=== PATIENT | male | born 1975 | race Caucasian/White ===

== ENCOUNTER 2022-10-13 10:03 | Emergency (ER) | payer BC, SELFPAY ==
[2022-10-13 10:19] VITALS: BP 149/99; PULSE 93; RESP 18; TEMP 36.7; O2SAT 99
--- NOTE | 2022-10-13 10:22 | ED.WOUNDLAC ---
HPI - Wound/Laceration General Chief Complaint: Extremity Injury, Lower Stated Complaint: rt leg swollen Time Seen by Provider: 10/13/22 10:22 Source: patient Mode of arrival: ambulatory Limitations: no limitations History of Present Illness HPI narrative: 47 year old male presented for complaints red swollen painful right lower leg since yesterday. Endorses dog scratched his leg, but unsure when. States the dog did not bite him. He has been applying MATHEW to the site. He endorses pain with ambulating. Rates pain 05/02. He took Tylenol this morning for pain. Denies Drainage, numbness, tingling, or weakness. Related Data Home Medications Medication Instructions Recorded Confirmed escitalopram oxalate 10 mg tablet 10 mg PO DAILY 06/19/22 10/13/22 Allergies Allergy/AdvReac Type Severity Reaction Status Date / Time No Known Allergies Allergy Verified 10/13/22 10:23 Review of Systems Review of Systems: CONSTITUTIONAL: Denies body aches, fever, chills, or sweats. CARDIOVASCULAR: Denies chest pain, palpitations, or edema. RESPIRATORY: Denies cough or dyspnea. GASTROINTESTINAL: Denies abdominal pain, nausea, vomiting, or diarrhea. SKIN: Per HPI MUSCULOSKELETAL: Denies back pain, joint pain, or myalgia. NEUROLOGIC: Denies headache, numbness, tingling, or weakness. [facility] Past Medical History Medical History Abdominal pain Allergies Anxiety Broken arm RIGHT ARM METAL PLATE Broken thumb LEFT THUMB SCREWS Establishing care with new doctor, encounter for Gastroparesis Right rotator cuff tear Right shoulder pain Social History Social History Smoking status: Former smoker Alcohol intake: never Substance use: never Lack of Transportation: No Lack of Food: Never True Current Housing: I Have Housing Concerned About Future Housing: No Difficulty Paying Gas/Electric Bills: No Difficulty Paying for Meds: No Currently Unemployed: No Education: Trade/Vocational Certificate Difficulty w/ Childcare or Family Care: No 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 Please see nursing chart for further information. There is no relevant family history pertinent to the presenting complaint Exam Narrative: GENERAL: Well-appearing HEAD: Normocephalic, atraumatic. EYES: conjunctivae clear, and EOMI. ENT: Mucous membranes moist. Oropharynx without edema, erythema or lesions. NECK: Supple. No lymphadenopathy CHEST: Clear to auscultation. HEART: Regular rate and rhythm. SKIN: Warm, dry. Right lower medial leg with mild swelling and erythema, no induration, drainage, or fluctuance, tender to palpation over medial malleolus, PPP. CMS intact. Full ROM to ankle. Ambulates with steady gait. NEURO: Alert and oriented x3. Course Course Emergency Course: Patient is aware of diagnosis, understands and agrees to treatment plan. Anticipatory guidance given. Patient agrees to follow-up as directed and is aware of reasons to seek care at the emergency department. Portions of this record may have been created with voice recognition software Level of Care: Express Care Visit Vital Signs Vital signs: Vital Signs Temperature 98.0 F 10/13/22 10:19 Pulse Rate 93 10/13/22 10:19 Respiratory Rate 18 10/13/22 10:19 Blood Pressure 149/99 H 10/13/22 10:19 Pulse Oximetry 99 10/13/22 10:19 Oxygen Delivery Room Air 10/13/22 10:19 Temperature 98.0 F 10/13/22 10:19 Pulse Rate 93 10/13/22 10:19 Respiratory Rate 18 10/13/22 10:19 Blood Pressure 149/99 H 10/13/22 10:19 Pulse Oximetry 99 10/13/22 10:19 Oxygen Delivery Room Air 10/13/22 10:19 Reviewed [facility]
== END 2022-10-13 10:36 | disposition home or self-care (01) ==
PROVIDERS: Emergency Provider Nurse Practitioner Family; PCP Family Medicine
DX: S80.811A Abrasion, right lower leg, initial encounter (principal); L03.115 Cellulitis of right lower limb; W54.8XXA Other contact with dog, initial encounter; F41.9 Anxiety disorder, unspecified; K31.84 Gastroparesis
CPT/HCPCS: 99213; G0463

== ENCOUNTER → 2022-11-10 07:53 | Outpatient (CLI) | payer BC, SELFPAY ==
--- NOTE | ~2022-11-10 | MR_ITS ---
MRI of the right shoulder Technique: Axial proton-density fat-sat images, coronal proton density fat-sat and T2 fat-sat images, and sagittal T1-weighted and T2 fat-sat images were acquired. Clinical History: Rotator cuff tear Correlation made with plain radiographs dated 09/18/2022. 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 No significant degenerative change at the AC joint itself. No subacromial spur. Coracoclavicular, coracoacromial, and coracohumeral ligaments are intact. There is a 5 x 6 mm partial-thickness articular surface tear at the posterior aspect of the distal cuba praspinatus tendon at its insertion on the greater tuberosity. There is mild background tendinosis of the subscapularis tendon. No partial or full-thickness tear of the infraspinatus tendon. Subscapular is tendon is intact. Tendon of the long head of the biceps is intact. Probable tear at the superior labrum extending to anterosuperior portion, with a small 4 mm paralabra l cyst (series 3 image 10, series 4 image 15). Inferior glenohumeral ligament is intact. No effusion or degenerative change of the glenohumeral join t. No fluid distention of the subacromial/subdeltoid bursa. No muscle atrophy or edema identified. Impression: 5 x 6 mm partial-thickness articular surface tear at the posterior aspect of the distal supraspinatus tendon, as detailed above. Probable superior labral tear extending to the anterosuperior portion, with associated 4 mm paralabra l cyst. 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 Reviewed, dictated and finalized at location [] UP GUIDER OPERATOR Impression: 5 x 6 mm partial-thickness articular surface tear at the posterior aspect of th e distal supraspinatus tendon, as detailed above. Probable superior labral tear extending to the anterosuperior portion, with ass ociated 4 mm paralabral cyst. 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
== END ==
PROVIDERS: PCP Orthopaedic Surgery; Visit Provider Orthopaedic Surgery
DX: M75.101 Unspecified rotator cuff tear or rupture of right shoulder, not specified as traumatic (principal)
CPT/HCPCS: 73221

== ENCOUNTER 2023-02-16 00:51 | Day surgery (SDC) | payer BC, SELFPAY ==
[2023-02-04 14:44] VITALS: BMI 23.8
--- NOTE | 2023-02-04 14:45 | SUR.PREOP ---
Report to the Outpatient Waiting Room, entrance under the green pavilion located off [facility], at time _1000 on date _02/16/23 . Planned Procedure Time: _1200 . Time changes happen often and if your time is changed the preop area will call you the afternoon before. - You and your visitor will be asked to self-screen and do not enter if you have any COVID symptoms. - Only one visitor is requested with a max of two and NO children visitors are allowed at this time. - The patient visitor may be requested to leave or wait in car when not with patient due to distancing restrictions. - A mask is optional within the hospital at this time. Patients may have clear liquids (water, carbonated beverages, clear teas, apple juice) until 3 hours prior to surgery with a maximum of 20 ounces. - No food from midnight until time of surgery - Infants may have breast milk until 4 hours before surgery, infant formula 6 hours prior to surgery. - Children will be allowed to drink immediately following surgery. If applicable, please bring a bottle or sippy cup to assist with drinking. Juice, water, soda, and popsicles are readily available. For infants on formula, please bring formula the day of surgery. Pacifiers are allowed. Take the following medications with a SIP of water the morning of surgery: __escitalopram DO NOT STOP ANY OF YOUR OTHER PRESCRIPTION MEDICATIONS PRIOR TO SURGERY ?EXCEPT THE FOLLOWING Medications to discontinue per physician ____n/a Date to take last dose___n/a Please no make-up, nail malaysian, hairspray, perfume, deodorant, or body powder the day of surgery. No jewelry (including any body piercings) or valuables the day of surgery, leave them at home. Please take a shower or bath the night before, or the morning of, surgery with an antibacterial soap. Wear comfortable, loose fitting clothing. Children are encouraged to wear pajamas. - Jewelry must be removed prior to entering the operating room. Rings and piercings that are not removed may be cut off. - The hospital will not accept responsibility for valuables. - Please leave all valuables, including medications, at home the day of surgery. If you are going home after surgery, a licensed fuel truck driver must drive you home. - NO public transportation without another adult if you receive anesthesia. - We recommend that an adult stay with you for 24 hours following discharge. - We also recommend that you do not drive, make important decision, drink alcoholic beverages, or take any drugs that were not prescribed by your health care provider for at least 24 hours after your discharge time. For Pediatric surgeries, we recommend two adults accompany the child home. Follow any additional instructions given to you from your surgeon. If you or anyone in your household have experienced Covid symptoms in the past week, please notify your surgeon or the nurse liaison at the phone number below for possible testing. Telephone instructions given to _fred burgos and asked if any additional questions and then verbalized understanding. Patient advised to call surgeon office or pre surgery nurse liaison [phone] if any additional questions.
[2023-02-16] VITALS (8 sets, daily range): BP systolic 126–150; BP diastolic 71–103; PULSE 64–79; RESP 16–20; TEMP 37.1; O2SAT 95–98
--- NOTE | 2023-02-16 09:05 | WPDANESEPPF ---
Anes - Initial Pre Proc Eval Procedure: Operation Date: 02/16/23 12:00 Proposed Procedures p Right Shoulder Arthroscopic Rotator Cuff Repair, Subacromial Decompression, Proceed as Indicated - Amandeep Schwartz MD Date/Time: 02/16/23 09:05 Surgeon: Amandeep Schwartz MD Pre Op Diagnosis: Rt Shoulder Rot Cuff Tear Patient Data Age: 47 Gender: M Height: 1.83 m Weight: 79.54 kg Allergies Allergy/AdvReac Type Severity Reaction Status Date / Time No Known Allergies Allergy Verified 02/16/23 10:22 Home Medications Medication Instructions Recorded Confirmed Type escitalopram oxalate 10 mg tablet 10 mg PO DAILY 06/19/22 02/16/23 History loratadine 10 mg tablet (Claritin) 10 mg PO DAILY #30 tabs 06/19/22 02/16/23 Rx meclizine 25 mg chewable tablet 25 mg PO BID PRN dizziness #30 tabs 10/09/22 02/16/23 Rx (Antivert) fluticasone propionate 50 1 spray intranasal DAILY 01/21/23 02/16/23 History mcg/actuation nasal spray,suspension (Flonase Allergy Relief) polyethylene glycol 3350 17 17 g PO DAILY 01/21/23 02/16/23 History gram/dose oral powder (Miralax) Patient hx anesthesia problems: none Family hx anesthesia problems: none Results Review: All pre-operative results and documents have been reviewed as part of the pre-operative evaluation. [facility] Past Medical History Medical History (Updated 02/16/23 @ 09:06 by Ricardo Ramey DO) Abdominal pain Allergies Anxiety Broken arm RIGHT ARM METAL PLATE Broken thumb LEFT THUMB SCREWS Dry mouth Establishing care with new doctor, encounter for Gastroparesis GERD (gastroesophageal reflux disease) Right rotator cuff tear Right shoulder pain Saliva decreased Family History Family History Father Cerebrovascular accident Other Cerebrovascular accident Social History Social History Smoking status: Former smoker Smokeless tobacco user: chewing tobacco Additional smoking assessment comments: 11/23/2018 stopped chewing tobacco Alcohol intake: current Alcohol use details: 1 drink a month Substance use: never Lack of Transportation: No Lack of Food: Never True Current Housing: I Have Housing Concerned About Future Housing: No Difficulty Paying Gas/Electric Bills: No Difficulty Paying for Meds: No Currently Unemployed: No Education: Trade/Vocational Certificate Difficulty w/ Childcare or Family Care: No Living arrangements: with family Occupation/Education: occupation 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 Informed Consent: The patient's anesthetic plan and its attendant risks and benefits were discussed with the patient/family/POA. Questions were solicited and answers provided to the satisfaction of the patient/family/POA.
--- NOTE | 2023-02-16 09:06 | WPDANESPNB ---
Anes - Peripheral Nerve Block Date/Time: 02/16/23 09:06 I have discussed with the patient/family/POA the placement of a peripheral nerve block for post-operative pain management, including associated risks, benefits, complications, and side effects. Alternative methods of post-operative analgesia were detailed. Questions were solicited and answers provided to the satisfaction of the patient/family/POA. Time-Out: A pre-procedural Time-Out was completed immediately before starting the procedure and confirmed: Patient Identification, Site, Procedure, Patient Position and the Availability of Requisite Equipment. Clinical Indications: Acute post-operative pain management requested by the operative surgeon. Nerve Block Insertion Note Anes-nerve block: interscalene right Patient position: supine Skin prep: chlorhexidine Needle: 22 gauge, stimulating, insulated echogenic needle. Needle length: 50 mm Technique: ultrasound Injectate: bupivacaine 0.5% with epi 5 mcg/ml (30cc- no epi) Observations: tolerated well Complications: none Procedure start time:: 1211 Procedure end time:: 1213
[2023-02-16] MEDS: LACTATED RINGERS 1,000 ML 30 ML IV CONT ×2 (10:30→14:27)
[2023-02-16] MEDS: ACETAMINOPHEN 500 MG TABLET 1000 MG PO (11:06)
[2023-02-16] MEDS: KETOROLAC 15 MG/ML VIAL (*BKC) IV PUSH (12:00)
--- NOTE | 2023-02-16 12:09 | WPDHPUPDATE1 ---
History and Physical Update Update Date/Time: 02/16/23 12:09 History and Physical has been reviewed, including an updated exam of the patient. There are NO changes in the patient's condition. Risks, benefits, and alternatives have been discussed and questions answered. Patient agrees to proceed with procedure.
--- NOTE | 2023-02-16 14:52 | W.PM.PROC2 ---
Procedure Note - Detailed Date of Procedure 02/16/23 Pre-op Diagnosis Rt Shoulder Rot Cuff Tear Post-op Diagnosis Other (1. Rotator cuff tear, high grade bursal partial tear 2. Subacromial impingement 3. Biceps tendinosis 4. SLAP tear) Procedure Performed Right shoulder 1. Arthroscopic rotator cuff repair 2. Arthroscopic subacromial decompression 3. Arthroscopic biceps tenodesis Surgeon Amandeep Schwartz MD Die Inspector Ariella Simmons PA-C Anesthesia General and Regional ( interscalene block) Indications Persistent significant shoulder pain with activity particularly reaching and overhead use. Pain despite conservative treatment. MRI showed high-grade bursal side tear indicating subacromial impingement as well as superior labral pathology. Findings High-grade bursal side rotator cuff tear. Very tight subacromial space with clear impingement on the hooked acromion. Abundant hypertrophic bursal tissue. Release performed of the CA ligament and decompression of the subacromial space with acromioplasty performed using the high-speed bur. The rotator cuff tear (approximately 50% thickness) was repaired with an inverted horizontal mattress suture as well as a luggage tag suture centrally to create a rip stop type configuration. A single knotless anchor was placed at the lateral tuberosity. The tear repaired very nicely. The superior labrum was quite degenerative and unstable. Significant fraying along the anterior superior and superior aspect. Biceps attachment was slightly degenerative and mobile. Biceps was pulled into the joint and a strip of hyperemia was noted. It was elected to perform a biceps tenodesis at the articular margin using a suture anchor with a loop and tack technique. Description of Procedure Preoperative antibiotics were given. An interscalene block was administered in the preoperative area. The patient was bought brought to the operating room. A general anesthetic was administered. The patient was carefully positioned in the beach chair position. The head and neck were carefully positioned. The non operative extremity was also carefully positioned. The shoulder was prepped and draped in the usual sterile fashion. Examination was performed. Standard posterior and anterior arthroscopic portals were established. Inflow achieved with the arthroscopic pump using saline and epinephrine. The glenohumeral joint was carefully inspected. The articular cartilage was healthy but the superior labrum was clearly torn and unstable. This was debrided. Loop and tack attachment and release of the biceps performed. Suture anchor stabilization at the articular margin. The subscapularis appeared normal. The articular rotator cuff appeared normal. Attention was turned to the subacromial space. A complete bursectomy was performed. The rotator cuff and footprint were lightly debrided. There was significant narrowing of the subacromial space with impingement on the bursal side cuff. Acromioplasty was performed. The tear configuration was carefully assessed. The tissue was good quality and single row repair with a horizontal mattress and luggage tag was sufficient to provide an anatomic reduction and good stability to the tendon. The arthroscopic instruments were removed. The wounds were closed with 3-0 Monocryl subcuticular suture and steri strips. There were no complications. A sling was applied and the patient brought to the recovery room. Physician preschool assistant principal, Ariella Simmons PA-C, required for surgery; including patient positioning, draping, arthroscopic camera operation, maintaining instrument position, suture retrieval, wound closure, and dressing and sling placement. Implants SwiveLock suture anchor. Loop and tack biceps repair system with SwiveLock anchor. Estimated Blood Loss -20.0 Pathology None sent Complications No immediate complications Condition Stable Disposition PACU [facility] Surgery - Charge Forward: Gaurav
== END 2023-02-16 16:34 | disposition home or self-care (01) ==
PROVIDERS: PCP Family Medicine; Visit Provider Orthopaedic Surgery
PROC: (CPT 29805; principal; 2023-02-16 12:00)
DX: S46.011A Strain of muscle(s) and tendon(s) of the rotator cuff of right shoulder, initial encounter (principal); S43.431A Superior glenoid labrum lesion of right shoulder, initial encounter; M75.41 Impingement syndrome of right shoulder; M75.21 Bicipital tendinitis, right shoulder; X50.0XXA Overexertion from strenuous movement or load, initial encounter; G89.18 Other acute postprocedural pain; F41.9 Anxiety disorder, unspecified; Z87.891 Personal history of nicotine dependence
CPT/HCPCS: 29827; 29828; 29826; 64415; A4565; A9270; C1713; J1100; J1170; J1885; J2250; J2405; J2704; J2710; J3010; J7120

== ENCOUNTER 2024-02-09 15:54 | Outpatient (CLI) | payer BC, SELFPAY ==
--- NOTE | ~2024-02-09 | MR_ITS ---
EXAMINATION: MR brain/brain stem wo/w con DATE: 02/09/2024 16:49 INDICATION: R42 - Dizziness and giddiness, vertigo. TECHNIQUE: Magnetic resonance imaging (MRI) of the brain and brainstem was performed without and with 17 mL MultiHance intravenous contrast. Sequences included sagittal and axial T1-weighted SE, axial d iffusion-weighted FS EPI ASSET, axial T2*-weighted GRE, axial T2-weighted FLAIR Propeller, and axial T2-weighted Propeller. Postcontrast axial and coronal T1-weighted SE was obtained. Apparent diffusion coefficient (ADC) maps were created. COMPARISON: None. FINDINGS: No abnormal restricted diffusion to suggest acute ischemic infarct. No MRI evidence of hemorrhage or extra-axial collection. No suspicious foci of susceptibility to suggest prior intraparenchymal hemorr esequiel. Minimal scattered foci of white matter hyperintensity, likely representing mild small vessel is chemic disease. No evidence of advanced or lobar predominant parenchymal volume loss. The basilar cis terns are patent. Flow voids are preserved. Suggestion of a 6 mm saccular dilation at the origin of t he right MCA. Paranasal sinuses are within normal limits. Globes and orbital contents are within norm al limits. IMPRESSION: Possible 6 mm right MCA origin aneurysm versus artifact. Recommend CTA of the head for further charac terization. Otherwise unremarkable MR brain findings. Reviewed, dictated and finalized at location K. IMPRESSION: Possible 6 mm right MCA origin aneurysm versus artifact. Recommend CTA of the h ead for further characterization. Otherwise unremarkable MR brain findings.
--- NOTE | ~2024-02-09 | US_ITS ---
EXAMINATION: US carotid duplex BI DATE: 02/09/2024 18:33 INDICATION: Dizziness TECHNIQUE: Grayscale, color Doppler, and pulsed Doppler images of the cervical carotid arteries were obtained. The degree of vessel stenosis is placed in one of the following categories: normal, <50%, 5 0-69%, >=70% but less than near-occlusion, near-occlusion, or total occlusion. Note that percent sten osis relative to normal distal artery lumen diameter is indirectly measured from velocity measurement s as described by Jose, et al. Radiology 2003; 229:340-346. Notes: Normal: Peak systolic velocity <125 centimeters/sec and no plaque <50%. Peak systolic velocity <125 ( EDV <40; ICA/CCA PSV ratio <2.0; used these factors only a tandem lesions or low cardiac output or co ntralateral disease) 50-69 %: PSV 125-230 (EDV 40-100; ratio 2-4) >= 70% but less than near occlusion: PSV greater than 230 (EDV > 100; ratio> 4.0) Near Occlusion: PSV that is variable; markedly narrowed lumen Occlusion: Absent flow on color/spectral Doppler and no lumen on rosales scale. COMPARISON: None. FINDINGS: RIGHT: The right common carotid artery (CCA) peak systolic velocity (PSV) is 49 cm/s. The right internal car otid artery (ICA) PSV is 78 cm/s. The right ICA end-diastolic velocity (EDV) is 24 cm/s. The right IC A/CCA PSV ratio is 1.6. The external carotid artery (ECA) PSV is 44 cm/s. There is antegrade flow in the right vertebral artery. LEFT: The left CCA PSV is 49 cm/s. The left ICA PSV is 38 cm/s. The left ICA EDV is 12 cm/s. The left ICA/C CA PSV ratio is 0.8. The ECA PSV is 44 cm/s. There is antegrade flow in the left vertebral artery. IMPRESSION: 1. Less than 50% stenosis in the right internal carotid artery by sonographic criteria. 2. Less than 50% stenosis in the left internal carotid artery by sonographic criteria. Reviewed, dictated and finalized at location A. IMPRESSION: 1. Less than 50% stenosis in the right internal carotid artery by sonographic tri garzon. 2. Less than 50% stenosis in the left internal carotid artery by sonographic john singh.
== END 2024-02-09 15:55 | disposition home or self-care (01) ==
LOC: ANHIMG 15:57
PROVIDERS: PCP Physician Assistant Medical; Visit Provider Physician Assistant Medical
DX: I65.23 Occlusion and stenosis of bilateral carotid arteries (principal)
CPT/HCPCS: 70553; 93880; A9577

== ENCOUNTER 2024-02-15 15:03 | Outpatient (CLI) | payer BC, SELFPAY ==
--- NOTE | ~2024-02-15 | CT_ITS ---
EXAMINATION: CTA brain DATE: 02/15/2024 15:59 INDICATION: Cerebral aneurysm. Other abnormal findings on diagnostic imaging of central nervous syste m. TECHNIQUE: Computed tomographic angiography (CTA) of the head was performed without and with 100 mL O mnipaque-350 intravenous contrast. Automated exposure control and iterative reconstruction technique were employed. The dose-length product was 998.21 mGy-cm. Maximum intensity projection 3D reconstruc tions were created. Volume-rendered 3D reconstructions of the intracranial arteries were created by nirmala aldrich technologist on a separate workstation. COMPARISON: Brain MRI 02/09/2024 FINDINGS: There is no intracranial hemorrhage, acute infarction, or abnormal intracranial mass lesion . The ventricles are normal in size. There is mild mucosal thickening in the ethmoid sinuses. The mas toid air cells are normal. The orbits are normal. Right vertebral artery is dominant. There is no sig nificant stenosis of basilar artery or the posterior cerebral arteries. The posterior communicating a rteries are normal. There is no significant stenosis of the intracranial internal carotid arteries or anterior or middle cerebral arteries. Anterior communicating artery is normal. There is no aneurysm. IMPRESSION: 1. Normal brain. No aneurysm or significant intracranial arterial stenosis. Reviewed, dictated and finalized at location E.
[2024-02-15 15:39] LABS: Estimated Glomerular Filt Rate > 60
== END 2024-02-15 15:04 | disposition home or self-care (01) ==
LOC: ANHIMG 15:07
PROVIDERS: PCP Physician Assistant Medical; Visit Provider Physician Assistant Medical
DX: R90.89 Other abnormal findings on diagnostic imaging of central nervous system (principal)
CPT/HCPCS: 70496; Q9967